=== PATIENT | female | born 1955 | race Caucasian/White ===

== ENCOUNTER → 2022-07-13 | Outpatient (CLI) | payer BC ==
[~2022-07-13] VITALS: Ht 162.6 cm; Wt 86.4 kg
[~2022-07-13] MED LIST: ASP81CT GT; HYDR50SO PO; IRON DEXTRAN 1,000 MG/NS 250 ML IVPB IV ONE; IRON DEXTRAN 25 MG/NS 6.25 ML TOTAL VOLUME IV ONE; LOSA25TA5 PO; LOSA50TA6 PO; MELO-198 PO; MIMVEY; PANT20TA2 PO; POTA10CA43 PO; SUCR1TAB23 PO; TRAM50TA2 PO; VALA500T17 PO
[2022-07-13 09:30] VITALS: BP 165/88
== END ==
LOC: SDC 09:21
PROVIDERS: ATTEND Internal Medicine
DX: E61.1 Iron deficiency (principal)
CPT/HCPCS: 96365